=== PATIENT | female | born 1940 | race Caucasian/White ===

== ENCOUNTER 2018-07-13 15:40 | Emergency (ER) | payer MEDICARE ==
--- NOTE | 2018-07-13 16:28 | ED ---
Psych HPI - General Chief Complaint: Psychiatric Symptoms Stated Complaint: Anxiety, Depression Time Seen by Provider: 07/13/18 16:01 Source: patient, EMS, RN notes reviewed Mode of arrival: EMS Limitations: no limitations - History of Present Illness Initial Comments: This is a 77-year-old female who presents to the emergency department for mental health evaluation. Patient reports a history of anxiety and depression. She states that she has been on Cymbalta for the past 16-17 years since her daughter . She states that she lives in [place] during the summer and in [place] during the winter. Patient states that a couple of days ago someone helped her pack so she could return to [place]. She states that since that time she has been unable to find her medications. It has been 2 days since taking her Cymbalta. Patient states that this morning she did not feel right. She states that she felt more depressed than usual. Denies suicidal or homicidal ideation. Denies auditory or visual hallucinations. Denies any recent illnesses or infections. States that she drinks alcohol approximately 1 time per month. Denies illicit drug use. Denies recent fevers or chills, chest pain or shortness of breath, abdominal pain, nausea or vomiting. - Related Data Home Medications Medication Instructions Recorded Confirmed Levothyroxine Sodium [Synthroid] 137 mcg PO DAILY 06/05/14 07/13/18 Lisinopril 10 mg PO DAILY 06/05/14 07/13/18 Potassium Chloride [Klor-Con 10] 10 meq PO DAILY 06/05/14 07/13/18 glipiZIDE [Glipizide] 10 mg PO DAILY 06/05/14 07/13/18 metFORMIN HCL 1,000 mg PO BID 06/05/14 07/13/18 Acetaminophen/Diphenhydramine 1 - 2 tab PO HS 07/13/18 07/13/18 [Tylenol PM 500-25mg] Calcium Carbonate [Tums] 1,000 mg PO TID PRN 07/13/18 07/13/18 Cholecalciferol (Vitamin D3) 2,000 unit PO DAILY 07/13/18 07/13/18 [Vitamin D3] DULoxetine HCL [Cymbalta] 60 mg PO DAILY 07/13/18 07/13/18 Fish Oil/Dha/Epa [Fish Oil 1,200 1 cap PO DAILY 07/13/18 07/13/18 mg Fish Oil] Insulin Glargine,Hum.rec.anlog 38 unit SQ HS 07/13/18 07/13/18 [Lantus Solostar] Liraglutide [Victoza 2-Vasu] 1.2 mg SQ DAILY 07/13/18 07/13/18 Multivitamins, Thera [Multivitamin 1 tab PO DAILY 07/13/18 07/13/18 (formulary)] Simvastatin 80 mg PO HS 07/13/18 07/13/18 Allergies Allergy/AdvReac Type Severity Reaction Status Date / Time EKG PATCHES AdvReac IRRITATES Uncoded 07/13/18 15:53 SKIN Review of Systems ROS Statement: Those systems with pertinent positive or pertinent negative responses have been documented in the HPI. ROS Other: All systems not noted in ROS Statement are negative. Past Medical History Past Medical History: Heart Failure, Diabetes Mellitus, Hypertension History of Any Multi-Drug Resistant Organisms: None Reported Past Surgical History: Appendectomy, Breast Surgery, Cholecystectomy, Heart Catheterization, Hysterectomy, Tonsillectomy Additional Past Surgical History / Comment(s): thyroidectomy Past Psychological History: Depression Smoking Status: Former smoker Past Alcohol Use History: Occasional Past Drug Use History: None Reported General Exam - General Exam Comments Initial Comments: General: Awake and alert, well-developed; in no apparent distress. HEENT: Head atraumatic, normocephalic. Pupils are equal, round and reactive to light. Extraocular movements intact. Oropharynx moist without erythema or exudate. Neck: Supple. Normal ROM. Cardiovascular: Regular rate and rhythm. No murmurs, rubs or gallops. Chest symmetrical. Respiratory: Lungs clear to auscultation bilaterally. No wheezes, rales or rhonchi. Normal respiratory effort with no use of accessory muscles. Abdomen: Soft, non-tender, non-distended. No rigidity, rebound or guarding. Musculoskeletal: Normal ROM, no tenderness bilateral upper and lower extremities. Skin: [place], warm and dry without rashes or lesions. Neurological: Alert and oriented x3. CN II-XII grossly intact. Speech is fluent and answers are appropriate. No focal neuro deficits. Psychiatric: Anxious. Tearful. Talkative. Limitations: no limitations Course Vital Signs 07/13/18 15:41 Temperature 97.0 F L Pulse Rate 85 Respiratory 18 Rate Blood Pressure 182/86 O2 Sat by Pulse 98 Oximetry Medical Decision Making - Medical Decision Making This is a 77-year-old female who presents to the emergency department with chief complaint of depression. Patient reports that she has been on Cymbalta for the past 16-17 years. She states that her medication is packed away and she can't get to it. She has not taken a dose of her Cymbalta for the past 2 days. CBC, CMP and UA are unremarkable. Patient cleared to be evaluated by EPS. EPS evaluated patient and they are recommending discharge home. Instructed patient to unpack and find her medications. Patient's vital signs are stable and she is in no acute distress. Patient will be discharged home at this time. She is in agreement and voices understanding. All questions were answered. - Lab Data Result diagrams: 07/13/18 16:48 07/13/18 16:48 Lab Results 07/13/18 07/13/18 07/13/18 Range/Units 16:48 16:48 17:59 WBC 8.1 (3.8-10.6) k/uL RBC 4.41 (3.80-5.40) m/uL Hgb 14.0 (11.4-16.0) gm/dL Hct 41.4 (34.0-46.0) % MCV 94.0 (80.0-100.0) fL MCH 31.9 (25.0-35.0) pg MCHC 33.9 (31.0-37.0) g/dL RDW 13.0 (11.5-15.5) % Plt Count 201 (150-450) k/uL Neutrophils % 63 % Lymphocytes % 28 % Monocytes % 5 % Eosinophils % 1 % Basophils % 1 % Neutrophils # 5.1 (1.3-7.7) k/uL Lymphocytes # 2.3 (1.0-4.8) k/uL Monocytes # 0.4 (0-1.0) k/uL Eosinophils # 0.1 (0-0.7) k/uL Basophils # 0.0 (0-0.2) k/uL Sodium 139 (137-145) mmol/L Potassium 4.2 (3.5-5.1) mmol/L Chloride 102 (98-107) mmol/L Carbon Dioxide 28 (22-30) mmol/L Anion Gap 9 mmol/L BUN 19 H (7-17) mg/dL Creatinine 0.66 (0.52-1.04) mg/dL Est GFR (CKD-EPI)AfAm >90 (>60 ml/min/1.73 sqM) Est GFR (CKD-EPI)NonAf 86 (>60 ml/min/1.73 sqM) Glucose 137 H (74-99) mg/dL Calcium 10.0 (8.4-10.2) mg/dL Urine Color Yellow Urine Appearance Clear (Clear) Urine pH 6.5 (5.0-8.0) Ur Specific [place] 1.013 (1.001-1.035) Urine Protein Negative (Negative) Urine Glucose (UA) Negative (Negative) Urine Ketones Negative (Negative) Urine Blood Small H (Negative) Urine Nitrite Negative (Negative) Urine Bilirubin Negative (Negative) Urine Urobilinogen <2.0 (<2.0) mg/dL Ur Leukocyte Esterase Small H (Negative) Urine RBC 4 (0-5) /hpf Urine WBC 2 (0-5) /hpf Ur Squamous Epith Cells <1 (0-4) /hpf Urine Opiates Screen Detected H (NotDetected) Ur Oxycodone Screen Not Detected (NotDetected) Urine Methadone Screen Not Detected (NotDetected) Ur Propoxyphene Screen Not Detected (NotDetected) Ur Barbiturates Screen Not Detected (NotDetected) U Tricyclic Antidepress Not Detected (NotDetected) Ur Phencyclidine Scrn Not Detected (NotDetected) Ur Amphetamines Screen Not Detected (NotDetected) U Methamphetamines Scrn Not Detected (NotDetected) U Benzodiazepines Scrn Not Detected (NotDetected) Urine Cocaine Screen Not Detected (NotDetected) U Marijuana (THC) Screen Not Detected (NotDetected) - EKG Data EKG Comments: 16:40:32. Normal sinus rhythm. Left axis deviation. Left ventricular hypertrophy with QRS widening and repolarization abnormality. Cannot rule out septal infarct, age undetermined. Ventricular rate 71 bpm, OH interval 196, QRS duration 138, QT/QTc 378/410 Disposition Clinical Impression: Depression Disposition: HOME SELF-CARE Condition: Good Instructions: Depression (ED) Additional Instructions: Please unpack and take your medications as prescribed. Please follow up with primary care provider within 1-2 days. Return to emergency department if symptoms should worsen or any concerns arise. Is patient prescribed a controlled substance at d/c from ED?: No Referrals: Jonathan Estes DO [Primary Care Provider] - 1-2 days Time of Disposition: 19:41
[2018-07-13 17:01] LABS: Basophils % (A) 1 %; Eosinophils # (A) 0.1 k/uL (0-0.7); Eosinophils % (A) 1 %; HCT 41.4 % (34.0-46.0); Lymphocytes # (A) 2.3 k/uL (1.0-4.8); Lymphocytes % (A) 28 %; MCH 31.9 pg (25.0-35.0); MCHC 33.9 g/dL (31.0-37.0); Mean Platelet Volume 7.1; Monocytes # (A) 0.4 k/uL (0-1.0); Monocytes % (A) 5 %; Neutrophils # (A) 5.1 k/uL (1.3-7.7); Neutrophils % (A) 63 %; Platelet Count 201 k/uL (150-450); RBC 4.41 m/uL (3.80-5.40); WBC 8.1 k/uL (3.8-10.6)
[2018-07-13 17:10] LABS: Anion Gap 9 mmol/L; Blood Urea Nitrogen 19 mg/dL (7-17); Carbon Dioxide 28 mmol/L (22-30); Chloride 102 mmol/L (98-107); Glucose 137 mg/dL (74-99); Potassium 4.2 mmol/L (3.5-5.1); Sodium 139 mmol/L (137-145)
[2018-07-13 18:10] LABS: Appearance,Urine Clear (Clear); Bilirubin,Urine Negative (Negative); Blood,Urine Small (Negative); Color,Urine Yellow; Glucose,Urine (UA) Negative (Negative); Ketones,Urine Negative (Negative); Leukocyte Esterase,Urine Small (Negative); Nitrite,Urine Negative (Negative); PH, Urine 6.5 (5.0-8.0); Protein,Urine Negative (Negative); RBC,Urine 4 /hpf (0-5); Specific Gravity,Urine 1.013 (1.001-1.035); Squamous Epithelial Cell,Urine <1 /hpf (0-4); Urobilinogen,Urine <2.0 mg/dL (<2.0); WBC,Urine 2 /hpf (0-5)
[2018-07-13 18:20] LABS: Amphetamine Screen,Urine Not Detected (NotDetected); Barbiturate Screen,Urine Not Detected (NotDetected); Benzodiazepines Screen,Urine Not Detected (NotDetected); Cocaine Screen,Urine Not Detected (NotDetected); Methadone Screen, Urine Not Detected (NotDetected); Opiate Screen,Urine Detected (NotDetected); Oxycodone Screen, Urine Not Detected (NotDetected); Phencyclidine Screen,Urine Not Detected (NotDetected); Tricyclic Antidepressant,Urine Not Detected (NotDetected); Urn Cannabinoid Scrn Not Detected (NotDetected)
[2018-07-13 19:59] VITALS: BP 145/92; PULSE 67; RESP 17; TEMP 97.4
== END 2018-07-13 19:58 | disposition home or self-care (01) ==
LOC: EC 15:40
DX: F32.9 Major depressive disorder, single episode, unspecified (principal); E11.9 Type 2 diabetes mellitus without complications; I11.0 Hypertensive heart disease with heart failure; I50.9 Heart failure, unspecified; Z79.4 Long term (current) use of insulin; Z79.899 Other long term (current) drug therapy; Z91.048 Other nonmedicinal substance allergy status; Z87.891 Personal history of nicotine dependence; Z95.5 Presence of coronary angioplasty implant and graft
CPT/HCPCS: 36415; 80048; 80306; 81001; 82075; 85025; 93005; 99284